=== PATIENT | male | born 1935 | race Caucasian/White ===

== ENCOUNTER 2018-11-06 16:59 | Inpatient (IN) ==
[2018-11-06] MEDS ORDERED: MORPHINE 4 MG/1 ML VIAL IV STA (17:09)
[2018-11-06] MEDS ORDERED: MORPHINE 4 MG/1 ML VIAL ONE (17:10)
[2018-11-06 18:04] LABS: Basophils % 0.1 % (0.0-0.8); Eosinophils # 0.1 10*3/uL (0.0-0.87); Eosinophils % 0.5 % (0.00-10.9); Hematocrit 34.5 VOL% (42.0-52.0); Immature Granulocytes % 0.7 %; Immature Granulocytes Absolute 0.07 #; Lymphocytes # 1.3 10*3/uL (1.4-4.0); Lymphocytes % 12.4 % (21.2-54.2); Mean Corpuscular HGB Conc 34.8 GM/DL (32-36); Mean Corpuscular Hemoglobin 32 PG (27-34); Mean Corpuscular Volume 92.5 FL (87-102); Mean Platelet Volume 9.4 FL (9.6-12.0); Monocytes # 0.8 10*3/uL (0.11-0.8); Monocytes % 7.2 % (1.7-12.7); Neutrophils # 8.5 10*3/uL (1.4-7.4); Neutrophils % 79.1 % (38.7-73.9); Platelet Count 165 T/CUMM (130-400); Red Blood Count 3.73 MC/CUMM (3.8-5.5); Red Cell Distribution Width 12.8 % (9.3-17.3); White Blood Count 10.7 T/CUMM (4-12)
[2018-11-06 18:14] LABS: INR 1.1; PT Patient Result 11.7 SECS; Partial Thromboplastin Time 29.2 SECS (0-40)
[2018-11-06 18:24] LABS: Albumin 3.5 G/DL (3.4-5.0); Bilirubin,Total 0.9 MG/DL (0.2-1.0); Calcium 8.2 MG/DL (8.5-10.1); Osmolality,Calculated 262.7 MOS/KG (273-304); Potassium 3.4 MMOL/L (3.5-5.1)
[2018-11-06 19:07] LABS: Apearance,Urine CLEAR (Clear); Bilirubin,Urine Negative (Negative); Blood, Urine Negative (Negative); Glucose,Urine (UA) Negative (Negative); Ketones,Urine Negative (Negative); Mucus,Urine Occasional /LPF (Occasional); Nitrite,Urine Negative (Negative); Protein,Urine Negative; RBC,Urine 1 /HPF (0-4); Urine Color Yellow (Yellow); Urine Specific Gravity 1.004 (1.001-1.035); Urine Urobilinogen < 2.0 EU/DL (0.2-1.0)
[2018-11-06] MEDS: SODIUM CHLOR 0.9% KCL 20 MEQ 20 MEQ/1,000 ML BAG IV SCH (19:50)
[2018-11-06] MEDS ORDERED: METOPROLOL TARTRATE 25 MG TABLET PO SCH (21:00)
[2018-11-06] MEDS: TIMOLOL 0.5% OPH SOLN 5 ML BOTTLE LEFT EYE SCH (21:37)
[2018-11-06] MEDS: METOPROLOL TARTRATE 25 MG TABLET PO SCH (21:37)
[2018-11-06] MEDS: FAMOTIDINE 20 MG TABLET PO SCH (21:37)
[2018-11-07] MEDS: SODIUM CHLOR 0.9% KCL 20 MEQ 20 MEQ/1,000 ML BAG IV SCH ×3 (03:50→21:54)
[2018-11-07 04:09] LABS: Basophils % 0.3 % (0.0-0.8); Eosinophils # 0.1 10*3/uL (0.0-0.87); Hematocrit 32.9 VOL% (42.0-52.0); Hemoglobin 11.2 GM/DL (14.0-18.0); Immature Granulocytes % 0.6 %; Immature Granulocytes Absolute 0.07 #; Lymphocytes # 1.2 10*3/uL (1.4-4.0); Lymphocytes % 10.6 % (21.2-54.2); Mean Corpuscular Hemoglobin 32 PG (27-34); Mean Corpuscular Volume 94.3 FL (87-102); Mean Platelet Volume 9.4 FL (9.6-12.0); Monocytes # 1.1 10*3/uL (0.11-0.8); Monocytes % 10.3 % (1.7-12.7); Neutrophils # 8.6 10*3/uL (1.4-7.4); Neutrophils % 77.2 % (38.7-73.9); Platelet Count 153 T/CUMM (130-400); Red Blood Count 3.49 MC/CUMM (3.8-5.5); Red Cell Distribution Width 13.3 % (9.3-17.3); White Blood Count 11.1 T/CUMM (4-12)
[2018-11-07 04:19] LABS: Calcium 7.8 MG/DL (8.5-10.1); Osmolality,Calculated 259.8 MOS/KG (273-304); Potassium 3.9 MMOL/L (3.5-5.1)
[2018-11-07] MEDS: MORPHINE 4 MG/1 ML VIAL IV PRN ×2 (05:27→22:13)
[2018-11-07] MEDS: METOPROLOL TARTRATE 25 MG TABLET PO SCH ×2 (08:47→21:54)
[2018-11-07] MEDS: DILTIAZEM CD 240 MG CAPSULE PO SCH (08:48)
[2018-11-07] MEDS ORDERED: diphenhydrAMINE 50 MG/1 ML VIAL IV PRN (10:12)
[2018-11-07] MEDS: ASPIRIN EC 81 MG TABLET PO SCH (10:30)
[2018-11-07] MEDS: MULTIVITAMIN (CENTRUM) TABLET PO SCH (10:30)
[2018-11-07] MEDS: ENOXAPARIN 40 MG/0.4 ML SYRINGE SUBCUT SCH (10:31)
[2018-11-07] MEDS: LOSARTAN/HCTZ 50-12.5 MG TABLET PO SCH (10:31)
[2018-11-07] MEDS: TAMSULOSIN 0.4 MG CAPSULE PO SCH (10:31)
[2018-11-07] MEDS: SIMVASTATIN 10 MG TABLET PO SCH (10:32)
[2018-11-07] MEDS: FAMOTIDINE 20 MG TABLET PO SCH ×2 (10:32→21:54)
[2018-11-07] MEDS: TIMOLOL 0.5% OPH SOLN 5 ML BOTTLE LEFT EYE SCH (21:55)
[2018-11-08 04:36] LABS: Basophils % 0.4 % (0.0-0.8); Eosinophils # 0.1 10*3/uL (0.0-0.87); Eosinophils % 0.7 % (0.00-10.9); Hematocrit 33.1 VOL% (42.0-52.0); Hemoglobin 11.3 GM/DL (14.0-18.0); Immature Granulocytes % 0.6 %; Immature Granulocytes Absolute 0.06 #; Lymphocytes # 1.5 10*3/uL (1.4-4.0); Mean Corpuscular HGB Conc 34.1 GM/DL (32-36); Mean Corpuscular Hemoglobin 32 PG (27-34); Mean Corpuscular Volume 94.8 FL (87-102); Mean Platelet Volume 9.6 FL (9.6-12.0); Monocytes # 1.3 10*3/uL (0.11-0.8); Monocytes % 12.3 % (1.7-12.7); Neutrophils # 7.8 10*3/uL (1.4-7.4); Platelet Count 134 T/CUMM (130-400); Red Blood Count 3.49 MC/CUMM (3.8-5.5); Red Cell Distribution Width 13.4 % (9.3-17.3); White Blood Count 10.8 T/CUMM (4-12)
[2018-11-08 04:49] LABS: Osmolality,Calculated 266.2 MOS/KG (273-304); Potassium 4.2 MMOL/L (3.5-5.1)
[2018-11-08] MEDS: SODIUM CHLOR 0.9% KCL 20 MEQ 20 MEQ/1,000 ML BAG IV SCH ×3 (06:10→20:28)
[2018-11-08] MEDS: DILTIAZEM CD 240 MG CAPSULE PO SCH (08:23)
[2018-11-08] MEDS: METOPROLOL TARTRATE 25 MG TABLET PO SCH ×2 (08:24→20:27)
[2018-11-08] MEDS: TAMSULOSIN 0.4 MG CAPSULE PO SCH (09:04)
[2018-11-08] MEDS: LOSARTAN/HCTZ 50-12.5 MG TABLET PO SCH (09:04)
[2018-11-08] MEDS: ASPIRIN EC 81 MG TABLET PO SCH (09:04)
[2018-11-08] MEDS: MULTIVITAMIN (CENTRUM) TABLET PO SCH (09:04)
[2018-11-08] MEDS: FAMOTIDINE 20 MG TABLET PO SCH ×2 (09:05→20:28)
[2018-11-08] MEDS: SIMVASTATIN 10 MG TABLET PO SCH (09:05)
[2018-11-08] MEDS: ENOXAPARIN 40 MG/0.4 ML SYRINGE SUBCUT SCH (09:05)
[2018-11-08] MEDS ORDERED: ceFAZolin 1,000 MG VIAL ONE (10:27)
[2018-11-08] MEDS ORDERED: ROPIVACAINE 0.5% 30 ML VIAL ONE (10:28)
[2018-11-08] MEDS ORDERED: HYDROmorphone 2 MG/1 ML VIAL IV PRN (11:32)
[2018-11-08] MEDS ORDERED: ONDANSETRON 4 MG/2 ML VIAL IV PRN (11:32)
[2018-11-08] MEDS ORDERED: fentaNYL 100 MCG/2 ML VIAL ONE (12:01)
[2018-11-08] MEDS ORDERED: SEVOFLURANE 1 UNIT/15 MINUTE INH ONE (12:01)
[2018-11-08] MEDS ORDERED: ETOMIDATE 40 MG/20 ML VIAL IV ONE (12:01)
[2018-11-08] MEDS ORDERED: PHENYLEPHRINE 1 MG/10 ML SYRINGE IV ONE (12:01)
[2018-11-08 12:34] LABS: Hematocrit 36.9 VOL% (42.0-52.0); Hemoglobin 12.2 GM/DL (14.0-18.0)
[2018-11-08] MEDS: ONDANSETRON 4 MG/2 ML VIAL IV PRN ×2 (14:19→20:27)
[2018-11-08] MEDS ORDERED: SODIUM CHLORIDE 0.9% 1,000 ML IV ONE ×2 (15:20→16:41)
[2018-11-08] MEDS ORDERED: PHENOL 1.4% THROAT SPRAY 177 ML BOTTLE PO PRN (18:34)
[2018-11-08] MEDS: TIMOLOL 0.5% OPH SOLN 5 ML BOTTLE LEFT EYE SCH (20:31)
[2018-11-08] MEDS: MORPHINE 4 MG/1 ML VIAL IV PRN (21:02)
[2018-11-08] MEDS ORDERED: PROMETHAZINE 25 MG/1 ML VIAL IM PRN (21:36)
[2018-11-09] MEDS: ONDANSETRON 4 MG/2 ML VIAL IV PRN ×3 (00:29→18:00)
[2018-11-09] MEDS: SODIUM CHLOR 0.9% KCL 20 MEQ 20 MEQ/1,000 ML BAG IV SCH ×3 (04:30→21:46)
[2018-11-09 05:31] LABS: Basophils # 0.1 10*3/uL (0.0-0.2); Basophils % 0.4 % (0.0-0.8); Eosinophils # 0.1 10*3/uL (0.0-0.87); Eosinophils % 0.5 % (0.00-10.9); Hematocrit 25.9 VOL% (42.0-52.0); Hemoglobin 8.7 GM/DL (14.0-18.0); Immature Granulocytes % 0.7 %; Lymphocytes # 1.1 10*3/uL (1.4-4.0); Lymphocytes % 7.5 % (21.2-54.2); Mean Corpuscular HGB Conc 33.6 GM/DL (32-36); Mean Corpuscular Hemoglobin 33 PG (27-34); Mean Corpuscular Volume 96.6 FL (87-102); Mean Platelet Volume 9.8 FL (9.6-12.0); Monocytes # 1.4 10*3/uL (0.11-0.8); Monocytes % 10.2 % (1.7-12.7); Neutrophils # 11.4 10*3/uL (1.4-7.4); Neutrophils % 80.7 % (38.7-73.9); Platelet Count 105 T/CUMM (130-400); Red Blood Count 2.68 MC/CUMM (3.8-5.5); Red Cell Distribution Width 13.5 % (9.3-17.3); White Blood Count 14.1 T/CUMM (4-12)
[2018-11-09 06:03] LABS: Calcium 7.3 MG/DL (8.5-10.1); Potassium 4.6 MMOL/L (3.5-5.1)
[2018-11-09] MEDS ORDERED: CALCIUM CARBONATE CHEW 500 MG TABLET PO PRN (08:33)
[2018-11-09] MEDS: ASPIRIN EC 81 MG TABLET PO SCH (09:44)
[2018-11-09] MEDS: TAMSULOSIN 0.4 MG CAPSULE PO SCH (09:44)
[2018-11-09] MEDS: DILTIAZEM CD 240 MG CAPSULE PO SCH (09:44)
[2018-11-09] MEDS: MULTIVITAMIN (CENTRUM) TABLET PO SCH (09:44)
[2018-11-09] MEDS: METOPROLOL TARTRATE 25 MG TABLET PO SCH ×2 (09:44→20:59)
[2018-11-09] MEDS: SIMVASTATIN 10 MG TABLET PO SCH (09:44)
[2018-11-09] MEDS: ENOXAPARIN 40 MG/0.4 ML SYRINGE SUBCUT SCH (09:45)
[2018-11-09] MEDS: FAMOTIDINE 20 MG TABLET PO SCH ×2 (09:45→20:59)
[2018-11-09] MEDS: TIMOLOL 0.5% OPH SOLN 5 ML BOTTLE LEFT EYE SCH (20:59)
[2018-11-10 05:28] LABS: Basophils % 0.1 % (0.0-0.8); Eosinophils % 0.3 % (0.00-10.9); Hematocrit 25.1 VOL% (42.0-52.0); Hemoglobin 8.4 GM/DL (14.0-18.0); Immature Granulocytes % 0.6 %; Immature Granulocytes Absolute 0.09 #; Lymphocytes % 6.4 % (21.2-54.2); Mean Corpuscular HGB Conc 33.5 GM/DL (32-36); Mean Corpuscular Hemoglobin 32 PG (27-34); Mean Corpuscular Volume 95.8 FL (87-102); Monocytes # 1.4 10*3/uL (0.11-0.8); Monocytes % 9.3 % (1.7-12.7); Neutrophils # 12.5 10*3/uL (1.4-7.4); Neutrophils % 83.3 % (38.7-73.9); Platelet Count 117 T/CUMM (130-400); Red Blood Count 2.62 MC/CUMM (3.8-5.5); Red Cell Distribution Width 13.8 % (9.3-17.3)
[2018-11-10 05:50] LABS: Calcium 7.5 MG/DL (8.5-10.1); Potassium 4.6 MMOL/L (3.5-5.1)
[2018-11-10] MEDS: TAMSULOSIN 0.4 MG CAPSULE PO SCH (09:35)
[2018-11-10] MEDS: DILTIAZEM 60 MG TABLET PO SCH ×3 (09:35→20:45)
[2018-11-10] MEDS: DILTIAZEM CD 240 MG CAPSULE PO SCH (09:36)
[2018-11-10] MEDS: MULTIVITAMIN (CENTRUM) TABLET PO SCH (09:39)
[2018-11-10] MEDS: METOPROLOL TARTRATE 25 MG TABLET PO SCH ×2 (09:39→20:46)
[2018-11-10] MEDS: ASPIRIN EC 81 MG TABLET PO SCH (09:39)
[2018-11-10] MEDS: FAMOTIDINE 20 MG TABLET PO SCH ×2 (09:40→20:46)
[2018-11-10] MEDS: ENOXAPARIN 40 MG/0.4 ML SYRINGE SUBCUT SCH (09:40)
[2018-11-10] MEDS: SIMVASTATIN 10 MG TABLET PO SCH (09:40)
[2018-11-10] MEDS ORDERED: TUBERCULIN SKIN TEST 0.1 ML SYRINGE INTRADERM ONE (10:00)
[2018-11-10 20:13] LABS: Apearance,Urine CLEAR (Clear); Bilirubin,Urine Negative (Negative); Blood, Urine Moderate mg/dL (Negative); Glucose,Urine (UA) Negative (Negative); Ketones,Urine 5 mg/dL (Negative); Mucus,Urine Occasional /LPF (Occasional); Nitrite,Urine Negative (Negative); Protein,Urine Negative; RBC,Urine 5 /HPF (0-4); Squamous Epithelial Cell,Urine Occasional /HPF (0-10); Urine Color Yellow (Yellow); Urine Urobilinogen < 2.0 EU/DL (0.2-1.0); WBC,Urine 10 /HPF (0-6)
[2018-11-10] MEDS: TIMOLOL 0.5% OPH SOLN 5 ML BOTTLE LEFT EYE SCH (20:46)
[2018-11-10] MEDS: SODIUM CHLOR 0.9% KCL 20 MEQ 20 MEQ/1,000 ML BAG IV SCH ×2 (23:21→23:27)
[2018-11-11] MEDS: DILTIAZEM 60 MG TABLET PO SCH ×2 (03:43→09:59)
[2018-11-11 05:38] LABS: Basophils % 0.1 % (0.0-0.8); Eosinophils % 0.4 % (0.00-10.9); Hematocrit 23.5 VOL% (42.0-52.0); Hemoglobin 7.7 GM/DL (14.0-18.0); Immature Granulocytes % 0.8 %; Immature Granulocytes Absolute 0.09 #; Lymphocytes # 0.7 10*3/uL (1.4-4.0); Lymphocytes % 6.8 % (21.2-54.2); Mean Corpuscular HGB Conc 32.8 GM/DL (32-36); Mean Corpuscular Hemoglobin 32 PG (27-34); Mean Corpuscular Volume 97.1 FL (87-102); Mean Platelet Volume 9.7 FL (9.6-12.0); Monocytes # 1.4 10*3/uL (0.11-0.8); Monocytes % 12.9 % (1.7-12.7); Neutrophils # 8.4 10*3/uL (1.4-7.4); Platelet Count 128 T/CUMM (130-400); Red Blood Count 2.42 MC/CUMM (3.8-5.5); White Blood Count 10.7 T/CUMM (4-12)
[2018-11-11 05:54] LABS: Calcium 7.6 MG/DL (8.5-10.1); Osmolality,Calculated 282.8 MOS/KG (273-304); Potassium 4.3 MMOL/L (3.5-5.1)
[2018-11-11] MEDS ORDERED: SODIUM CHLORIDE 0.9% 1,000 ML IV PRN (07:46)
[2018-11-11] MEDS: ASPIRIN EC 81 MG TABLET PO SCH (09:39)
[2018-11-11] MEDS: MULTIVITAMIN (CENTRUM) TABLET PO SCH (09:40)
[2018-11-11] MEDS: TAMSULOSIN 0.4 MG CAPSULE PO SCH (09:40)
[2018-11-11] MEDS: METOPROLOL TARTRATE 25 MG TABLET PO SCH (09:41)
[2018-11-11] MEDS: FAMOTIDINE 20 MG TABLET PO SCH (09:44)
[2018-11-11] MEDS: ENOXAPARIN 40 MG/0.4 ML SYRINGE SUBCUT SCH (09:48)
[2018-11-11] MEDS: SIMVASTATIN 10 MG TABLET PO SCH (09:59)
[2018-11-11] MEDS ORDERED: DILTIAZEM CD 240 MG CAPSULE PO SCH (10:00)
[2018-11-11] MEDS: SODIUM CHLOR 0.9% KCL 20 MEQ 20 MEQ/1,000 ML BAG IV SCH ×2 (10:00→15:04)
[2018-11-11 14:29] VITALS: BP 102/56
== END 2018-11-11 14:30 | DRG 481 ==
LOC: N.ED 16:59 → SUATTDRO 18:26 → N.EDINP 18:26 → N.3E 19:11
PROVIDERS: ADMIT Hospitalist; ATTEND Internal Medicine

== ENCOUNTER 2019-12-24 07:05 | Inpatient (IN) ==
[2019-12-24 07:43] LABS: Basophils % 0.1 % (0.0-0.8); Eosinophils % 0.1 % (0.00-10.9); Hematocrit 39.7 VOL% (42.0-52.0); Immature Granulocytes % 0.4 %; Immature Granulocytes Absolute 0.06 #; Lymphocytes # 0.7 10*3/uL (1.4-4.0); Lymphocytes % 5.5 % (21.2-54.2); Mean Corpuscular HGB Conc 35.3 GM/DL (32-36); Mean Corpuscular Volume 92.1 FL (87-102); Mean Platelet Volume 8.5 FL (9.6-12.0); Monocytes % 7.8 % (1.7-12.7); Neutrophils % 86.1 % (38.7-73.9); Platelet Count 201 T/CUMM (130-400); Red Blood Count 4.31 MC/CUMM (3.8-5.5); Red Cell Distribution Width 12.8 % (9.3-17.3); White Blood Count 13.4 T/CUMM (4-12)
[2019-12-24 07:47] LABS: Apearance,Urine CLEAR (Clear); Bilirubin,Urine Negative (Negative); Blood, Urine Negative (Negative); Glucose,Urine (UA) Negative (Negative); Ketones,Urine 5 mg/dL (Negative); Nitrite,Urine Negative (Negative); Protein,Urine Negative; RBC,Urine 3 /HPF (0-4); Urine Color Straw (Yellow); Urine Specific Gravity 1.005 (1.001-1.035); Urine Urobilinogen < 2.0 EU/DL (0.2-1.0)
[2019-12-24 07:54] LABS: Partial Thromboplastin Time 28.8 SECS (23.9-33.8)
[2019-12-24 08:03] LABS: Calcium 9.7 MG/DL (8.5-10.1); Osmolality,Calculated 253.4 MOS/KG (273-304)
[2019-12-24] MEDS ORDERED: ONDANSETRON 4 MG/2 ML VIAL IV STA (08:53)
[2019-12-24] MEDS ORDERED: HYDROmorphone 2 MG/1 ML VIAL IV STA (08:53)
[2019-12-24] MEDS ORDERED: MORPHINE 4 MG/1 ML VIAL IV PRN (10:29)
[2019-12-24] MEDS ORDERED: DEXTROSE 10% 250 ML BAG IV PRN (10:29)
[2019-12-24] MEDS ORDERED: GLUCAGON 1 MG VIAL IM PRN (10:29)
[2019-12-24] MEDS: SODIUM CHLORIDE 0.9% 1,000 ML IV SCH ×2 (13:13→23:51)
[2019-12-24] MEDS: SIMVASTATIN 10 MG TABLET PO SCH (21:24)
[2019-12-24] MEDS: APIXABAN 2.5 MG TABLET PO SCH (21:24)
[2019-12-24] MEDS: METOPROLOL TARTRATE 25 MG TABLET PO SCH (21:51)
[2019-12-25] MEDS: ONDANSETRON 4 MG/2 ML VIAL IV PRN (04:10)
[2019-12-25 05:22] LABS: Basophils % 0.3 % (0.0-0.8); Eosinophils # 0.4 10*3/uL (0.0-0.87); Eosinophils % 4.2 % (0.00-10.9); Hematocrit 34.6 VOL% (42.0-52.0); Hemoglobin 12.2 GM/DL (14.0-18.0); Immature Granulocytes % 0.5 %; Immature Granulocytes Absolute 0.04 #; Lymphocytes # 0.9 10*3/uL (1.4-4.0); Lymphocytes % 10.5 % (21.2-54.2); Mean Corpuscular HGB Conc 35.3 GM/DL (32-36); Mean Platelet Volume 8.8 FL (9.6-12.0); Monocytes % 9.8 % (1.7-12.7); Neutrophils % 74.7 % (38.7-73.9); Platelet Count 169 T/CUMM (130-400); Red Blood Count 3.72 MC/CUMM (3.8-5.5); Red Cell Distribution Width 13.2 % (9.3-17.3); White Blood Count 8.8 T/CUMM (4-12)
[2019-12-25 06:27] LABS: Calcium 8.7 MG/DL (8.5-10.1); Osmolality,Calculated 256.2 MOS/KG (273-304)
[2019-12-25] MEDS: MULTIVITAMIN (CENTRUM) TABLET PO SCH (09:12)
[2019-12-25] MEDS: LOSARTAN 50 MG TABLET PO SCH (09:12)
[2019-12-25] MEDS: METOPROLOL TARTRATE 25 MG TABLET PO SCH ×2 (09:13→20:13)
[2019-12-25] MEDS: TAMSULOSIN 0.4 MG CAPSULE PO SCH (09:13)
[2019-12-25] MEDS: APIXABAN 2.5 MG TABLET PO SCH ×2 (09:13→20:13)
[2019-12-25] MEDS: DILTIAZEM CD 240 MG CAPSULE PO SCH (09:14)
[2019-12-25] MEDS: TIMOLOL MALEATE LEFT EYE SCH (09:15)
[2019-12-25] MEDS: SODIUM CHLORIDE 0.9% 1,000 ML IV SCH ×2 (09:16→18:07)
[2019-12-25] MEDS: SIMVASTATIN 10 MG TABLET PO SCH (20:13)
[2019-12-26 06:20] LABS: Basophils % 0.3 % (0.0-0.8); Eosinophils # 0.6 10*3/uL (0.0-0.87); Hematocrit 33.3 VOL% (42.0-52.0); Hemoglobin 11.3 GM/DL (14.0-18.0); Immature Granulocytes % 0.3 %; Immature Granulocytes Absolute 0.03 #; Lymphocytes # 1.1 10*3/uL (1.4-4.0); Lymphocytes % 12.8 % (21.2-54.2); Mean Corpuscular HGB Conc 33.9 GM/DL (32-36); Mean Corpuscular Volume 94.3 FL (87-102); Mean Platelet Volume 8.9 FL (9.6-12.0); Monocytes % 12.5 % (1.7-12.7); Neutrophils % 67.1 % (38.7-73.9); Platelet Count 150 T/CUMM (130-400); Red Blood Count 3.53 MC/CUMM (3.8-5.5); Red Cell Distribution Width 13.3 % (9.3-17.3); White Blood Count 8.7 T/CUMM (4-12)
[2019-12-26 06:37] LABS: Osmolality,Calculated 262.8 MOS/KG (273-304)
[2019-12-26] MEDS: MULTIVITAMIN (CENTRUM) TABLET PO SCH (08:31)
[2019-12-26] MEDS: METOPROLOL TARTRATE 25 MG TABLET PO SCH ×2 (08:31→21:59)
[2019-12-26] MEDS: TAMSULOSIN 0.4 MG CAPSULE PO SCH (08:31)
[2019-12-26] MEDS: DILTIAZEM CD 240 MG CAPSULE PO SCH (08:31)
[2019-12-26] MEDS: APIXABAN 2.5 MG TABLET PO SCH ×2 (08:31→21:59)
[2019-12-26] MEDS: LOSARTAN 50 MG TABLET PO SCH (08:32)
[2019-12-26] MEDS: TIMOLOL MALEATE LEFT EYE SCH (09:34)
[2019-12-26] MEDS: SODIUM CHLORIDE 0.9% 1,000 ML IV SCH ×2 (17:23→17:57)
[2019-12-26] MEDS: SIMVASTATIN 10 MG TABLET PO SCH (22:00)
[2019-12-27 08:56] LABS: Calcium 8.3 MG/DL (8.5-10.1); Osmolality,Calculated 259.9 MOS/KG (273-304)
[2019-12-27] MEDS: TAMSULOSIN 0.4 MG CAPSULE PO SCH (09:06)
[2019-12-27] MEDS: MULTIVITAMIN (CENTRUM) TABLET PO SCH (09:06)
[2019-12-27] MEDS: LOSARTAN 50 MG TABLET PO SCH (09:06)
[2019-12-27] MEDS: APIXABAN 2.5 MG TABLET PO SCH ×2 (09:06→21:29)
[2019-12-27] MEDS: DILTIAZEM CD 240 MG CAPSULE PO SCH (09:06)
[2019-12-27] MEDS: METOPROLOL TARTRATE 25 MG TABLET PO SCH ×2 (09:06→21:29)
[2019-12-27] MEDS: TIMOLOL MALEATE LEFT EYE SCH (09:48)
[2019-12-27] MEDS ORDERED: TUBERCULIN SKIN TEST 0.1 ML SYRINGE INTRADERM ONE (11:44)
[2019-12-27] MEDS: SODIUM CHLORIDE 0.9% 1,000 ML IV SCH (13:59)
[2019-12-27] MEDS: ONDANSETRON 4 MG/2 ML VIAL IV PRN (16:03)
[2019-12-27] MEDS: SIMVASTATIN 10 MG TABLET PO SCH (21:29)
[2019-12-28] MEDS: ONDANSETRON 4 MG/2 ML VIAL IV PRN ×2 (00:52→04:54)
[2019-12-28] MEDS: TAMSULOSIN 0.4 MG CAPSULE PO SCH (09:46)
[2019-12-28] MEDS: LOSARTAN 50 MG TABLET PO SCH (09:46)
[2019-12-28] MEDS: TIMOLOL MALEATE LEFT EYE SCH (09:46)
[2019-12-28] MEDS: METOPROLOL TARTRATE 25 MG TABLET PO SCH (09:46)
[2019-12-28] MEDS: DILTIAZEM CD 240 MG CAPSULE PO SCH (09:46)
[2019-12-28] MEDS: APIXABAN 2.5 MG TABLET PO SCH (09:46)
[2019-12-28] MEDS: MULTIVITAMIN (CENTRUM) TABLET PO SCH (09:46)
[2019-12-28 16:08] VITALS: BP 124/72
[2019-12-28] MEDS: SODIUM CHLORIDE 0.9% 1,000 ML IV SCH (20:07)
== END 2019-12-28 16:40 | disposition home health service (06) | DRG 536 ==
LOC: N.ED 07:05 → N.EDINP 10:39 → SUATTDRO 10:39 → N.3E 11:59
PROVIDERS: ADMIT Internal Medicine; ATTEND Internal Medicine